=== PATIENT | male | born 1965 | race Caucasian/White ===

== ENCOUNTER 2016-05-31 16:47 | Emergency (ER) | payer OTHER ==
[~2016-05-31] VITALS: Ht 165.1 cm; Wt 90.7 kg
--- NOTE | 2016-05-31 18:22 | ED THROAT/DENTAL COMPLAINT ---
History of Present Illness General Chief Complaint: General Adult Stated Complaint: LERNER,SORE THROAT Source: patient Exam Limitations: no limitations Vital Signs & Intake/Output Vital Signs & Intake/Output Vital Signs Date Time Temp Pulse Resp B/P Pulse O2 O2 Flow FiO2 Ox Delivery Rate 05/31 2049 128/72 05/31 2029 Room Air 05/31 1652 96.5 75 20 133/79 98 Room Air Allergies Coded Allergies: No Known Allergies (05/31/16) Reconcile Medications Oxycodone HCl/Acetaminophen (Percocet 5-325 MG Tablet) 5 MG-325 MG TABLET 1-2 TAB PO Q6P PRN pain Triage Note: PT TO ED C/O HEADACHE X 1 WEEK. ALSO C/O SWELLING UNDER TONGUE, RIGHT SIDE WORSE THAN LEFT. C/O JAW PAIN. PT SAW PCP YESTERDAY AND WAS GIVEN ABX FOR A SINUS INFECTION. AFEBRILE. HAS BEEN TAKING MOTRIN WITH SOME RELIEF. Triage Nurses Notes Reviewed? yes Onset: Abrupt Duration: day(s): (FEW), constant, continues in ED Timing: recent history No Modifying Factors: none HPI: 50-year-old male comes into the emergency room for further evaluation of jaw pain on the right side with some swelling. Patient reports it started with a headache and now is localized into his right lower jaw in the floor of his mouth. Denies any fever chills vomiting. Denies any chest pain or shortness of breath. Patient saw his doctor yesterday who started him on amoxicillin. Patient comes into the emergency room due to pain increased. (EDUAR SIMENTAL) Past History Travel History Traveled to [place] past 21 day No Medical History Any Pertinent Medical History? none Surgical History Surgical History: non-contributory Psychosocial History What is your primary language Romanian Tobacco Use: Never used ETOH Use: denies use Illicit Drug Use: denies illicit drug use Family History Hx Contributory? No (EDUAR SIMENTAL) Review of Systems Review of Systems Constitutional: Reports: no symptoms. EENTM: Reports: see HPI. Respiratory: Reports: no symptoms. Cardiovascular: Reports: no symptoms. GI: Reports: no symptoms. Genitourinary: Reports: no symptoms. Musculoskeletal: Reports: no symptoms. Skin: Reports: no symptoms. Neurological/Psychological: Reports: no symptoms. Hematologic/Endocrine: Reports: no symptoms. Immunologic/Allergic: Reports: no symptoms. All Other Systems: Reviewed and Negative (EDUAR SIMENTAL) Physical Exam Physical Exam General Appearance: well developed/nourished, no apparent distress, alert, awake Head: atraumatic, normal appearance Eyes: Bilateral: normal appearance, PERRL, EOMI. Ears: Bilateral: canal normal. Nose: normal inspection Mouth/Throat: normal mouth inspection, MILD SWELLING BASE OF RIGHT FLOOR OF MOUTH UNDERNEATH TONGUE, IN VICINITY OF [place]'S DUCT Neck: normal inspection Cardiovascular/Respiratory: normal breath sounds, regular rate/rhythm Back: normal inspection Neurologic/Psych: awake, alert, oriented x 3, normal gait, normal mood/affect Skin: intact, normal color Core Measures ACS in differential dx? No Severe Sepsis Present: No Septic Shock Present: No (EDUAR SIMENTAL) Progress Differential Diagnosis: aspirated tooth, carious tooth, epiglottitis, Ludwigs angina, meningitis, odontogenic abscess, armando-tonsillar abscess, pharyngeal for. body, stomatitis/gingivitis, strep pharyngitis, tooth fracture, SALIVARY DUCT STONE Plan of Care: Orders Procedure Date/time Status CBC WITHOUT DIFFERENTIAL 05/31 1820 Complete BASIC METABOLIC PANEL 05/31 1820 Complete Current Medications Sig/Aamir Start time Last Medication Dose Stop Time Status Admin Oxycodone/ 0 .STK-MED ONE 05/31 190 CAN Acetaminophen (Percocet) Oxycodone/ 2 TAB ONCE ONE 05/31 1829 CAN Acetaminophen 05/31 1830 (Percocet) Laboratory Tests 05/31/16 1920: Anion Gap 12, Estimated GFR > 60, BUN/Creatinine Ratio 20.0, Glucose 88, Calcium 9.0, CBC w Diff NO MAN DIFF REQ, RBC 5.02, MCV 90.4, MCH 30.1, RDW 13.2, MPV 8.1 , Gran % 81.0 H, Lymphocytes % 11.1 L, Monocytes % 6.3, Eosinophils % 1.4, Basophils % 0.2, Absolute Granulocytes 10.5 H, Absolute Lymphocytes 1.4, Absolute Monocytes 0.8 H, Absolute Eosinophils 0.2, Absolute Basophils 0, PUBS MCHC 33.3 Diagnostic Imaging: Viewed by Me: CT Scan. Discussed w/RAD: CT Scan. Radiology Impression: EXAM TYPE: CAT - CT HEAD WO IV CONTRAST; CT NECK WO IV CONTRAST EXAMINATION: CT HEAD WITHOUT CONTRAST CT NECK WITHOUT CONTRAST CLINICAL INFORMATION: 50-year-old male patient with severe headache and jaw pain. COMPARISON: None. TECHNIQUE: Contiguous axial imaging was performed from the skull base to vertex without intravenous administration of contrast. Multidetector helical imaging was performed through the neck. DLP: 546 mGy-cm. FINDINGS: HEAD: There is no evidence of acute intracranial hemorrhage or territorial infarction. No abnormal mass effect or midline shift is seen. Bonds to white matter differentiation is well preserved. No extra-axial fluid collections are identified. The ventricles are normal in size. Brain parenchymal attenuation is normal. The osseous structures and soft tissues are normal. The mastoid air cells and visualized portions of the paranasal sinuses are well aerated. NECK: No cervical adenopathy is identified. Small level 2 lymph nodes are seen bilaterally. The largest lymph node measures 1 cm in short axis and is located in the suprahyoid right neck. Series 602, image 46. The parotid glands are homogeneous in attenuation. The left submandibular gland is normal. The right submandibular gland is atrophic. This is secondary to a collection of large and small stones residing within [place]'s duct. In addition, there are inflammatory changes posterior to the collection of calculi in the duct. Without IV contrast, it is difficult to exclude an abscess in the area. Series 3, image 213. This would explain the patient's jaw pain. No contour abnormality is seen within the oral cavity or pharyngeal mucosal space. The laryngeal structures are normal. The parapharyngeal fat is preserved. No extra mucosal soft tissue mass or fluid collection is seen. No retropharyngeal fluid collection is seen. The thyroid gland is normal. The superior mediastinum is unremarkable. The lung apices are clear. The mastoid air cells and visualized portions of the paranasal sinuses are well aerated. The temporomandibular joints are normal. No periapical disease is identified. Degenerative disc disease involves the levels of C4-C5 and C5-C6 with marginal osteophytes at these levels. IMPRESSION: 1. No acute intracranial pathology. 2. Inflammatory (phlegmon) located posterior to numerous calculi in [place]'s duct on the right side and anterior to an atrophic right submandibular gland. DICTATED BY: JAQUELINE KENNEDY MD DATE/TIME DICTATED:1918 PERSONAL INJURY SPECIALIST:YONIS DATE/TIME TRANSCRIBED:05/31/161918 Comments: 05/31/2016 10:04:11 PM Patient appears to have a salivary stone on exam. Patient clinically looks well. Nontoxic-appearing. Patient no apparent distress. Patient told to use our kidneys at home. Patient is on antibiotics already. Reports ear nose and throat. Return if any other concerns. (EDUAR SIMENTAL) Departure Departure Disposition: HOME OR SELF CARE Condition: Stable Clinical Impression Primary Impression: Salivary duct calculi Referrals: LESLIE WRIGHT,JAIME Shook (PCP/Family) ANUSHA WRIGHT,JODY Dubon Additional Instructions: Eat Sour candy's at home. Take Percocet as prescribed. Continue taking amoxicillin. Follow-up with ear nose and throat doctor if not better in a few days. Return if any other concerns worsening symptoms. Please go over all results of today's visit with your primary care doctor. Contact your primary care doctor to let them know you were here in the emergency room. There may be nonspecific findings which may not be related to your visit today here in the emergency room but may require further evaluation and chronic monitoring by your primary care doctor. If you had a laceration today the chance of foreign body always remains. You should follow-up with your primary care doctor for recheck in 3-5 days for a wound check. If you had an x-ray done there is a chance that a fracture could have been missed on initial read and you should follow-up with your primary care doctor for repeat x-rays if symptoms persist. If your blood pressure was elevated here in the emergency room please have rechecked by her primary care doctor within the next 48 hours by your primary care doctor. If you were prescribed a narcotic here in the emergency room or any type of controlled substances you're not allowed to drive while taking this medication or operate any type of heavy machinery. Narcotics can make you feel lightheaded dizziness nausea and can cause constipation. You may need to garbage pick up man a stool softener. Thank you for choosing [facility] emergency room. Please return to the emergency room immediately if you have any other concerns worsening of symptoms. Departure Forms: Customer Survey General Discharge Information Prescriptions: Current Visit Scripts Oxycodone HCl/Acetaminophen (Percocet 5-325 MG Tablet) 1-2 TAB PO Q6P PRN pain #15 TAB (YOVANY SIMENTALON) PA/ICT CUSTOMER SUPPORT OFFICER Co-Sign Statement Statement: ED Attending supervision documentation- [] I saw and evaluated the patient. I have also reviewed all the pertinent lab results and diagnostic results. I agree with the findings and the plan of care as documented in the PA's/ICT CUSTOMER SUPPORT OFFICER's documentation. [X] I have reviewed the ED Record and agree with the PA's/ICT CUSTOMER SUPPORT OFFICER's documentation. [] Additions or exceptions (if any) to the PAs/ICT CUSTOMER SUPPORT OFFICER's note and plan are summarized below: [] (PERICO WRIGHT,VIRGIE Blevins)
[2016-05-31 19:33] LABS: ABSOLUTE BASOPHIL COUNT 0 /CUMM (0.0-0.2); ABSOLUTE EOSINOPHIL COUNT 0.2 /CUMM (0.0-0.7); ABSOLUTE GRANULOCYTE CT 10.5 /CUMM (1.4-6.5); ABSOLUTE LYMPH COUNT 1.4 /CUMM (1.2-3.4); ABSOLUTE MONOCYTE COUNT 0.8 /CUMM (0.10-0.60); BASOPHIL % 0.2 % (0.0-2.0); EOSINOPHIL % 1.4 % (0-5); HEMATOCRIT 45.4 % (42-52); MEAN CORPUSCULAR HGB 30.1 PG (27.0-31.0); MEAN CORPUSCULAR HGB CONC 33.3 G/DL (33.0-37.0); MEAN CORPUSCULAR VOLUME 90.4 FL (80.0-94.0); MEAN PLATELET VOLUME 8.1 FL (7.4-10.4); PLATELET COUNT 211 /CUMM (130-400); RBC DISTRIBUTION WIDTH 13.2 % (11.5-14.5); RED BLOOD CELL CT 5.02 /CUMM (4.70-6.10); WHITE BLOOD CELL COUNT 12.9 /CUMM (4.8-10.8)
--- NOTE | 2016-05-31 19:47 | CT SCAN REPORT ---
EXAMINATION: CT HEAD WITHOUT CONTRAST CT NECK WITHOUT CONTRAST CLINICAL INFORMATION: 50-year-old male patient with severe headache and jaw pain. COMPARISON: None. TECHNIQUE: Contiguous axial imaging was performed from the skull base to vertex without intravenous administration of contrast. Multidetector helical imaging was performed through the neck. DLP: 546 mGy-cm. FINDINGS: HEAD: There is no evidence of acute intracranial hemorrhage or territorial infarction. No abnormal mass effect or midline shift is seen. Bonds to white matter differentiation is well preserved. No extra-axial fluid collections are identified. The ventricles are normal in size. Brain parenchymal attenuation is normal. The osseous structures and soft tissues are normal. The mastoid air cells and visualized portions of the paranasal sinuses are well aerated. NECK: No cervical adenopathy is identified. Small level 2 lymph nodes are seen bilaterally. The largest lymph node measures 1 cm in short axis and is located in the suprahyoid right neck. Series 602, image 46. The parotid glands are homogeneous in attenuation. The left submandibular gland is normal. The right submandibular gland is atrophic. This is secondary to a collection of large and small stones residing within [place]'s duct. In addition, there are inflammatory changes posterior to the collection of calculi in the duct. Without IV contrast, it is difficult to exclude an abscess in the area. Series 3, image 213. This would explain the patient's jaw pain. No contour abnormality is seen within the oral cavity or pharyngeal mucosal space. The laryngeal structures are normal. The parapharyngeal fat is preserved. No extra mucosal soft tissue mass or fluid collection is seen. No retropharyngeal fluid collection is seen. The thyroid gland is normal. The superior mediastinum is unremarkable. The lung apices are clear. The mastoid air cells and visualized portions of the paranasal sinuses are well aerated. The temporomandibular joints are normal. No periapical disease is identified. Degenerative disc disease involves the levels of C4-C5 and C5-C6 with marginal osteophytes at these levels. IMPRESSION: 1. No acute intracranial pathology. 2. Inflammatory (phlegmon) located posterior to numerous calculi in [place]'s duct on the right side and anterior to an atrophic right submandibular gland.
[2016-05-31] MEDS ORDERED: PERCOCET 5-3251 EACH PO (20:27)
[2016-05-31 20:50] VITALS: BP 128/72
== END 2016-05-31 20:40 ==
LOC: ERH 16:47
PROVIDERS: Physician Assistant Medical
DX: K11.5 Sialolithiasis (principal)